=== PATIENT | female | born 1985 | race Asian ===

== ENCOUNTER → 2017-12-10 10:55 | Outpatient (CLI) | payer OTHER, SELFPAY ==
--- NOTE | 2017-12-10 | DI.MG.S_ITS ---
BILATERAL DIGITAL SCREENING MAMMOGRAM 3D/2D WITH CAD: 12/10/2017 CLINICAL: Routine screening. Family history of breast cancer. Comparison is made to exam dated: 05/03/2015 mammogram - [facility]. The tissue of both breasts is heterogeneously dense. This may lower the sensitivity of mammography. Current study was also evaluated with a Computer Aided Detection (CAD) system. No significant masses, calcifications, or other findings are seen in either breast. There has been no significant interval change. IMPRESSION: NEGATIVE There is no mammographic evidence of malignancy. A 1 year screening mammogram is recommended. This exam was interpreted at Station ID: [id number]. NOTE: For mammograms, a report in lay terms will be sent to the patient. Approximately 15% of breast malignancies will not be visualized mammographically. In the management of a palpable breast mass, a negative mammogram must not discourage biopsy of a clinically suspicious lesion. Electronically Signed By: Owen nova/katelin:12/10/2017 17:12:03 letter sent: Normal Exam ACR BI-RADS Category 1: Negative [id number]
== END ==
PROVIDERS: Family Provider Physician Assistant; PCP Physician Assistant; Visit Provider Physician Assistant
DX: Z12.31 Encounter for screening mammogram for malignant neoplasm of breast (principal); Z80.3 Family history of malignant neoplasm of breast
CPT/HCPCS: 77063; 77067

== ENCOUNTER 2018-03-01 16:45 | Outpatient (RCR) | payer OTHER, SELFPAY ==
--- NOTE | 2018-01-19 10:28 | PT.OIE ---
Current Diagnoses Stiffness of unspecified joint, not elsewhere classified (01/18/18) Cervicalgia (01/18/18) Headache (01/18/18) Weakness (01/18/18) Past Surgical History (Last Reviewed 01/11/18 @ 15:33 by Duke Ng PA-C) Status post delivery Provider Visit Care Team Role Provider Type Linda Restrepo PA-C Family Provider Advanced Call Circuit Worker Primary Care Provider Specialty: Family Practice Address: [address] [place] [address], [id number] Email: [email or web address] Duke Ng PA-C Attending Provider Advanced Call Circuit Worker Specialty: Pain Management Address: [address] [place] [address], [id number] Email: Physical Therapy Initial Evaluation PT-OP-A Visit Information Start: 01/19/18 09:36 Freq: Status: Active Protocol: Document 01/18/18 09:45 DCW (Rec: 01/19/18 10:26 DC [id number]) Out-Patient Physical Therapy Visit Information Visit Information Visit Type Initial Evaluation Visit Start Time 09:45 Visit Stop Time 10:30 Total Visit Minutes 45 Visit Number 1 Number of WASHER AND CAPPER MACHINE OPERATOR Visits 0 Evaluation Information Evaluation Date 01/18/18 PT-OP-B Current Condition Start: 01/19/18 09:36 Freq: Status: Active Protocol: Document 01/18/18 09:45 DCW (Rec: 01/19/18 10:26 DC [id number]) Current Condition History of Current Condition Onset Date 2 year history Current Complaints Cervical stiffness, headaches, participation restrictions History of Current Condition Pt is a 32 year old female presenting with a two year history of cervical neck pain and headaches. Pt is noted to have a migraine history, however reports that she stopped experiencing migraines eight years ago following her . Reports this is a much different pain, starting in her neck and working its way across her entire head. Pt does not know how it began. Notes that she previously had seen a chiropractor, which would relieve her pain for 2-3 weeks, however now her relief only lasts the remainder of the day, so she has stopped going. Pt reports she is limited in all her hobbies which require her to look down , including knitting, puzzles, piano, and video games, and last week could not drive her son to his piano lesson because it would have been safe to drive due to her neck being so stiff. Pt reports pain seems to worsen with lying supine. Notes her neck is pain free 1-2 days a month , the other days range from mild discomfort to canceling plans due to the headache or immobility. Prior Treatments and Tests Pt seen at pain management clinic by headache specialist Treatment Goals Patient/Caregiver Goals I want to get back to my hobbies, especially get restarted on playing piano. Prior Functional Status Baseline Function- ADL's Independent Baseline Function- Mobility Independent Current Functional Impairments (Reported) Functional Limitations- Recreation/ Limited with knitting, puzzles Hobbies , playing piano, and playing video games Functional Limitations- Other Occasionally limited with driving due to cervical immobility. PT-OP-C Subjective Start: 01/19/18 09:36 Freq: Status: Active Protocol: Document 01/18/18 09:45 DCW (Rec: 01/19/18 10:26 DCW [id number]) Patient Questionnaires Neck Disability Index NDI Score 15/50 = 30% Neck Disability Index Impairment 20 to 39% Impaired (Score 10- 19) OP-PT Pain Assessment Pain Assessment Grid Paper Pain Assessment Grid Completed Yes Location Bilateral Upper Posterior Shoulder Intensity 5 Scale Used Numeric (1 - 10) Bilateral Posterior Neck Intensity 7 Scale Used Numeric (1 - 10) Other Pain Aggravating Factors Laying supine, cervical flexion PT-OP-F Manual Assessment Start: 01/19/18 09:36 Freq: Status: Active Protocol: Document 01/18/18 09:45 DCW (Rec: 01/19/18 10:26 DCW [id number]) Manual Assessments Soft Tissue Assessment Soft Tissue Mobility Assessment Severe muscle tone in right scalenes and upper trap Moderate muscle tone in left scalenes and upper trap Moderate muscle tone bilateral suboccipitals Joint Mobility Assessment Joint Mobility Assessment Limited cervical ROM/joint mobility, hypomobility with cervical joint mobilizations, right lateral TMJ deviation at rest, worsening with jaw depression and elevation PT-OP-K Range of Motion Start: 01/19/18 09:36 Freq: Status: Active Protocol: Document 01/18/18 09:45 DCW (Rec: 01/19/18 10:26 [id number]) Cervical Spine Range of Motion Cervical Spine Active Degrees Testing Position Sitting Flexion 50 Extension 35 Rotation Left 57 Rotation Right 42 Lateral Flexion Left 25 Lateral Flexion Right 35 ROM Limitations Soft Tissue Tightness Bony Restriction Muscle Weakness Muscle Tone Pain Comments With cervical extension: I feel like I'm going to lose control and my head is just going to fall back. PT-OP-L Special Tests Start: 01/19/18 09:36 Freq: Status: Active Protocol: Document 01/18/18 09:45 DCW (Rec: 01/19/18 10:26 [id number]) Special Tests Cervical Spine Special Tests Passive Neck Flexion Test Results Negative Traction Test Results Relieves symptoms Alar Ligament Test Results Negative PT-OP-M Strength Start: 01/19/18 09:36 Freq: Status: Active Protocol: Document 01/18/18 09:45 DCW (Rec: 01/19/18 10:26 [id number]) Cervical Spine Strength Cervical Spine Manual Muscle Testing Testing Position Supine Flexion (C1-2) 3+ Fair+ Extension 4+ Good+ Rotation Left 4- Good- Rotation Right 4- Good- Lateral Flexion Left (C3) 4- Good- Lateral Flexion Right (C3) 4- Good- PT-OP-Q Treatments Start: 01/19/18 09:36 Freq: Status: Active Protocol: Document 01/18/18 09:45 DCW (Rec: 01/19/18 10:26 [id number]) Therapeutic Exercises Supine Exercises 1 Supine Exercise Name Chin tuck/head lift Side bilateral Sitting Exercises 2 Sitting Exercise Name Upper trap stretch Side bilateral 1 Sitting Exercise Name Scalene stretch Side bilateral PT-OP-T Assessment and Plan Start: 01/19/18 09:36 Freq: Status: Active Protocol: Document 01/18/18 09:45 DCW (Rec: 01/19/18 10:26 [facility] [id number]) Physical Therapy Assessment Rehab Potential Rehabilitation Potential Good Evaluation Complexity Number of Personal Factors/Comorbidities 1-2 Number of Body Systems Impaired 3 Clinical Presentation at Evaluation Unstable Impairments Impairments Activity Tolerance Functional Activities Functional Mobility Pain Posture ROM Soft Tissue Mobility Strength Tone Goals Five Impairment Muscle tone Short Term Goal (STG) Muscle tone of pt's bilateral scalenes, upper traps, and suboccipitals to mild STG Duration 02/08/18 Four Impairment Cervical Strength Halfway Goal (LTG) Pt to maintain a chin tuck/ head lift position for 20 seconds without increased pain or shaking LTG Duration 03/01/18 Three Impairment Cervical ROM Formation Testing Operator Goal (LTG) Cervical Flexion to 70? Cervical Extension to 50? Lateral Flexion to 40? bilaterally Rotation to 70? bilaterally LTG Duration 03/01/18 Two Impairment Pain Halfway Goal (LTG) Pt to report pain at worst of 4/10 LTG Duration 03/01/18 One Impairment Participation Restrictions Short Term Goal (STG) Pt to drive without cervical ROM limitations for two straight weeks STG Duration 02/08/18 Formation Testing Operator Goal (LTG) Pt to return to playing piano with no increased symptoms LTG Duration 03/01/18 Assessment Summary Assessment Pt presents to skilled therapy with signs and symptoms of cervicogenic headache. Pt displays cervical weakness and limited ROM, and should benefit from skilled therapy focusing on strengthening, flexibility, STM, traction, and activity tolerance. Pt's varied severity and changing affected side may be a barrier to rehab. Pt also displays some TMJ disorders, with a right laterally deviated mandible at rest, which worsens during mandibular depression and elevation, and associated grinding at the TMJ . Occasionally, cervical issues may cause TMJ disorder, however pt states that her lateral deviation is a long- standing issue, which she had extensive dental work done to correct, so this may be an unrelated finding. Physical Therapy Plan Frequency and Duration Frequency of Treatment 2x/Week Duration of Treatment 10 weeks Plan of Care Start Date 01/18/18 Plan of Care End Date 03/29/18 Therapeutic Interventions Therapeutic Interventions Aquatic Therapy Home Exercise Program Joint Mobilizations Manual Therapy Soft Tissue Mobilization Therapeutic Activities Therapeutic Exercises Modalities Cold Pack/Ice Massage Electric Stimulation Hot Packs Traction- Mechanical Ultrasound Next Visit Focus/Plan Next Note Type Treatment Note Next Visit Plan Increased flexibility and strengthening exercises, manual therapy, traction
--- NOTE | 2018-01-19 10:29 | PT.OPPOC ---
Current Diagnoses Stiffness of unspecified joint, not elsewhere classified (01/18/18) Cervicalgia (01/18/18) Headache (01/18/18) Weakness (01/18/18) Provider Visit Care Team Role Provider Type Linda Restrepo PA-C Family Provider Advanced Production Sanitizer Primary Care Provider Specialty: Family Practice Address: [address] [place] [address] Email: [email or web address] Duke Ng PA-C Attending Provider Advanced Production Sanitizer Specialty: Pain Management Address: [address] [place] [address], [id number] Email: Plan Of Care PT-OP-T Assessment and Plan Start: 01/19/18 09:36 Freq: Status: Active Protocol: Document 01/18/18 09:45 DCW (Rec: 01/19/18 10:26 DCW [id number]) Physical Therapy Assessment Rehab Potential Rehabilitation Potential Good Evaluation Complexity Number of Personal Factors/Comorbidities 1-2 Number of Body Systems Impaired 3 Clinical Presentation at Evaluation Unstable Impairments Impairments Activity Tolerance Functional Activities Functional Mobility Pain Posture ROM Soft Tissue Mobility Strength Tone Goals Five Impairment Muscle tone Short Term Goal (STG) Muscle tone of pt's bilateral scalenes, upper traps, and suboccipitals to mild STG Duration 02/08/18 Four Impairment Cervical Strength Sleep Technologist Goal (LTG) Pt to maintain a chin tuck/ head lift position for 20 seconds without increased pain or shaking LTG Duration 03/01/18 Three Impairment Cervical ROM Fpc Goal (LTG) Cervical Flexion to 70? Cervical Extension to 50? Lateral Flexion to 40? bilaterally Rotation to 70? bilaterally LTG Duration 03/01/18 Two Impairment Pain Fpc Goal (LTG) Pt to report pain at worst of 4/10 LTG Duration 03/01/18 One Impairment Participation Restrictions Short Term Goal (STG) Pt to drive without cervical ROM limitations for two straight weeks STG Duration 02/08/18 Sleep Technologist Goal (LTG) Pt to return to playing piano with no increased symptoms LTG Duration 03/01/18 Assessment Summary Assessment Pt presents to skilled therapy with signs and symptoms of cervicogenic headache. Pt displays cervical weakness and limited ROM, and should benefit from skilled therapy focusing on strengthening, flexibility, STM, traction, and activity tolerance. Pt's varied severity and changing affected side may be a barrier to rehab. Pt also displays some TMJ disorders, with a right laterally deviated mandible at rest, which worsens during mandibular depression and elevation, and associated grinding at the TMJ . Occasionally, cervical issues may cause TMJ disorder, however pt states that her lateral deviation is a long- standing issue, which she had extensive dental work done to correct, so this may be an unrelated finding. Physical Therapy Plan Frequency and Duration Frequency of Treatment 2x/Week Duration of Treatment 10 weeks Plan of Care Start Date 01/18/18 Plan of Care End Date 03/29/18 Therapeutic Interventions Therapeutic Interventions Aquatic Therapy Home Exercise Program Joint Mobilizations Manual Therapy Soft Tissue Mobilization Therapeutic Activities Therapeutic Exercises Modalities Cold Pack/Ice Massage Electric Stimulation Hot Packs Traction- Mechanical Ultrasound Next Visit Focus/Plan Next Note Type Treatment Note Next Visit Plan Increased flexibility and strengthening exercises, manual therapy, traction Plan of Care Dates Plan of Care Start Date 01/18/18 Plan of Care End Date 03/29/18 Please Sign and Return: I have reviewed this Plan of Care and certify that the skilled therapy services above are required to meet the patient?s needs. Physician Signature Date Printed Name and Credentials Clinical Instructor Signature Printed Name and Credentials
--- NOTE | 2018-01-26 10:29 | PT.OTN ---
Current Diagnoses Headache (01/26/18) Physical Therapy Treatment Note PT-OP-A Visit Information Start: 01/19/18 09:36 Freq: Status: Active Protocol: Document 01/26/18 09:45 DCW (Rec: 01/26/18 10:29 DCW [id number]) Out-Patient Physical Therapy Visit Information Visit Information Visit Type Treatment Note Visit Start Time 09:45 Visit Stop Time 10:30 Total Visit Minutes 45 Visit Number 2 Number of SOLUTION CONSULTANT Visits 0 Evaluation Information Evaluation Date 01/18/18 PT-OP-B Current Condition Start: 01/19/18 09:36 Freq: Status: Active Protocol: Document 01/18/18 09:45 DCW (Rec: 01/19/18 10:26 DCW [id number]) Current Condition History of Current Condition Onset Date 2 year history Current Complaints Cervical stiffness, headaches, participation restrictions History of Current Condition Pt is a 32 year old female presenting with a two year history of cervical neck pain and headaches. Pt is noted to have a migraine history, however reports that she stopped experiencing migraines eight years ago following her . Reports this is a much different pain, starting in her neck and working its way across her entire head. Pt does not know how it began. Notes that she previously had seen a chiropractor, which would relieve her pain for 2-3 weeks, however now her relief only lasts the remainder of the day, so she has stopped going. Pt reports she is limited in all her hobbies which require her to look down , including knitting, puzzles, piano, and video games, and last week could not drive her son to his piano lesson because it would have been safe to drive due to her neck being so stiff. Pt reports pain seems to worsen with lying supine. Notes her neck is pain free 1-2 days a month , the other days range from mild discomfort to canceling plans due to the headache or immobility. Prior Treatments and Tests Pt seen at pain management clinic by headache specialist Treatment Goals Patient/Caregiver Goals I want to get back to my hobbies, especially get restarted on playing piano. Prior Functional Status Baseline Function- ADL's Independent Baseline Function- Mobility Independent Current Functional Impairments (Reported) Functional Limitations- Recreation/ Limited with knitting, puzzles Hobbies , playing piano, and playing video games Functional Limitations- Other Occasionally limited with driving due to cervical immobility. PT-OP-C Subjective Start: 01/19/18 09:36 Freq: Status: Active Protocol: Document 01/26/18 09:45 DCW (Rec: 01/26/18 10:29 DCW [id number]) OP-PT Subjective Patient Comments Patient Comments Pt reports her right side feels better today, but her left side is now bothering her . Pt also notes that her neck feels good when performing her stretches, however will occasionally seize up afterward. PT-OP-F Manual Assessment Start: 01/19/18 09:36 Freq: Status: Active Protocol: Document 01/18/18 09:45 DCW (Rec: 01/19/18 10:26 DCW [id number]) Manual Assessments Soft Tissue Assessment Soft Tissue Mobility Assessment Severe muscle tone in right scalenes and upper trap Moderate muscle tone in left scalenes and upper trap Moderate muscle tone bilateral suboccipitals Joint Mobility Assessment Joint Mobility Assessment Limited cervical ROM/joint mobility, hypomobility with cervical joint mobilizations, right lateral TMJ deviation at rest, worsening with jaw depression and elevation PT-OP-K Range of Motion Start: 01/19/18 09:36 Freq: Status: Active Protocol: Document 01/18/18 09:45 DCW (Rec: 01/19/18 10:26 DCW [id number]) Cervical Spine Range of Motion Cervical Spine Active Degrees Testing Position Sitting Flexion 50 Extension 35 Rotation Left 57 Rotation Right 42 Lateral Flexion Left 25 Lateral Flexion Right 35 ROM Limitations Soft Tissue Tightness Bony Restriction Muscle Weakness Muscle Tone Pain Comments With cervical extension: I feel like I'm going to lose control and my head is just going to fall back. PT-OP-L Special Tests Start: 01/19/18 09:36 Freq: Status: Active Protocol: Document 01/18/18 09:45 DCW (Rec: 01/19/18 10:26 DCW [id number]) Special Tests Cervical Spine Special Tests Passive Neck Flexion Test Results Negative Traction Test Results Relieves symptoms Alar Ligament Test Results Negative PT-OP-M Strength Start: 01/19/18 09:36 Freq: Status: Active Protocol: Document 01/18/18 09:45 DCW (Rec: 01/19/18 10:26 DCW [id number]) Cervical Spine Strength Cervical Spine Manual Muscle Testing Testing Position Supine Flexion (C1-2) 3+ Fair+ Extension 4+ Good+ Rotation Left 4- Good- Rotation Right 4- Good- Lateral Flexion Left (C3) 4- Good- Lateral Flexion Right (C3) 4- Good- PT-OP-Q Treatments Start: 01/19/18 09:36 Freq: Status: Active Protocol: Document 01/26/18 09:45 DCW (Rec: 01/26/18 10:29 [id number] Manual Therapy Treatment Soft Tissue Mobilization 3 Body Location Suboccipitals Mobilization Type Sustained Pressure Intensity/Depth Superficial Body Position Supine 2 Body Location Scalenes Mobilization Type Sustained Pressure Trigger Point Release Intensity/Depth Moderate Body Position Supine 1 Body Location Upper Trap Mobilization Type Strain/Counterstrain Sustained Pressure Trigger Point Release Intensity/Depth Moderate Body Position Supine Joint Mobilizations 1 Joint Cervical vertebrae Direction P->A Grade III Body Position Supine Manual Traction Cervical Body Position Supine PT-OP-R Modalities Start: 01/19/18 09:36 Freq: Status: Active Protocol: Document 01/26/18 09:45 DCW (Rec: 01/26/18 10:29 [id number] Spinal Traction Traction Treatment Cervical Method Static Patient Position Hooklying Force Applied (Pounds) 20 Duration of Treatment (Minutes) 10 Traction Treatment Comment It feels pretty good. PT-OP-T Assessment and Plan Start: 01/19/18 09:36 Freq: Status: Active Protocol: Document 01/26/18 09:45 DCW (Rec: 01/26/18 10:29 [id number]) Physical Therapy Assessment Impairments Impairments Activity Tolerance Functional Activities Functional Mobility Pain Posture ROM Soft Tissue Mobility Strength Tone Goals Five Impairment Muscle tone Short Term Goal (STG) Muscle tone of pt's bilateral scalenes, upper traps, and suboccipitals to mild STG Duration 02/08/18 Four Impairment Cervical Strength Snf Goal (LTG) Pt to maintain a chin tuck/ head lift position for 20 seconds without increased pain or shaking LTG Duration 03/01/18 Three Impairment Cervical ROM Paddle Dyeing Machine Operator Goal (LTG) Cervical Flexion to 70? Cervical Extension to 50? Lateral Flexion to 40? bilaterally Rotation to 70? bilaterally LTG Duration 03/01/18 Two Impairment Pain Snf Goal (LTG) Pt to report pain at worst of 4/10 LTG Duration 03/01/18 One Impairment Participation Restrictions Short Term Goal (STG) Pt to drive without cervical ROM limitations for two straight weeks STG Duration 02/08/18 Snf Goal (LTG) Pt to return to playing piano with no increased symptoms LTG Duration 03/01/18 Assessment Summary Assessment Pt instructed to decrease intensity of her HEP stretching, and if spasm continued afterward, to stop performing altogether. Pt tolerated manual therapy well, and appeared to get relief from mechanical traction Physical Therapy Plan Frequency and Duration Frequency of Treatment 2x/Week Duration of Treatment 10 weeks Plan of Care Start Date 01/18/18 Plan of Care End Date 03/29/18 Therapeutic Interventions Therapeutic Interventions Aquatic Therapy Home Exercise Program Joint Mobilizations Manual Therapy Soft Tissue Mobilization Therapeutic Activities Therapeutic Exercises Modalities Cold Pack/Ice Massage Electric Stimulation Hot Packs Traction- Mechanical Ultrasound Next Visit Focus/Plan Next Note Type Treatment Note Next Visit Plan Increased flexibility and strengthening exercises, manual therapy, traction
--- NOTE | 2018-02-02 14:48 | PT.OTN ---
Current Diagnoses Headache (02/02/18) Physical Therapy Treatment Note PT-OP-A Visit Information Start: 01/19/18 09:36 Freq: Status: Active Protocol: Document 02/02/18 13:33 LRN (Rec: 02/02/18 14:47 LRN [id number]) Out-Patient Physical Therapy Visit Information Visit Information Visit Type Treatment Note Visit Start Time 13:33 Visit Stop Time 14:20 Total Visit Minutes 47 Visit Number 3 Number of SHEARER SCREEN MEASURER AND TRIMMER Visits 0 Evaluation Information Evaluation Date 01/18/18 PT-OP-B Current Condition Start: 01/19/18 09:36 Freq: Status: Active Protocol: Document 01/18/18 09:45 DCW (Rec: 01/19/18 10:26 DCW [id number]) Current Condition History of Current Condition Onset Date 2 year history Current Complaints Cervical stiffness, headaches, participation restrictions History of Current Condition Pt is a 32 year old female presenting with a two year history of cervical neck pain and headaches. Pt is noted to have a migraine history, however reports that she stopped experiencing migraines eight years ago following her . Reports this is a much different pain, starting in her neck and working its way across her entire head. Pt does not know how it began. Notes that she previously had seen a chiropractor, which would relieve her pain for 2-3 weeks, however now her relief only lasts the remainder of the day, so she has stopped going. Pt reports she is limited in all her hobbies which require her to look down , including knitting, puzzles, piano, and video games, and last week could not drive her son to his piano lesson because it would have been safe to drive due to her neck being so stiff. Pt reports pain seems to worsen with lying supine. Notes her neck is pain free 1-2 days a month , the other days range from mild discomfort to canceling plans due to the headache or immobility. Prior Treatments and Tests Pt seen at pain management clinic by headache specialist Treatment Goals Patient/Caregiver Goals I want to get back to my hobbies, especially get restarted on playing piano. Prior Functional Status Baseline Function- ADL's Independent Baseline Function- Mobility Independent Current Functional Impairments (Reported) Functional Limitations- Recreation/ Limited with knitting, puzzles Hobbies , playing piano, and playing video games Functional Limitations- Other Occasionally limited with driving due to cervical immobility. PT-OP-C Subjective Start: 01/19/18 09:36 Freq: Status: Active Protocol: Document 02/02/18 13:33 LRN (Rec: 02/02/18 14:47 LRN [id number]) OP-PT Subjective Patient Comments Patient Comments Stretches and new pillow, woke today feeling better than has been. Static, 0/10 pain, if move wrong (turning head) pain shoots up neck rated 3/10. One muscle is a dull ache, muscle that runs up the neck. States during traction the last session she had discomfort, but when finished it cleared up. States since stretching, occasionally she feels she is restricted by a thread and discomfort, but if keeps going she hears a pop and then has more movement. PT-OP-F Manual Assessment Start: 01/19/18 09:36 Freq: Status: Active Protocol: Document 01/18/18 09:45 DCW (Rec: 01/19/18 10:26 DCW [id number]) Manual Assessments Soft Tissue Assessment Soft Tissue Mobility Assessment Severe muscle tone in right scalenes and upper trap Moderate muscle tone in left scalenes and upper trap Moderate muscle tone bilateral suboccipitals Joint Mobility Assessment Joint Mobility Assessment Limited cervical ROM/joint mobility, hypomobility with cervical joint mobilizations, right lateral TMJ deviation at rest, worsening with jaw depression and elevation PT-OP-K Range of Motion Start: 01/19/18 09:36 Freq: Status: Active Protocol: Document 01/18/18 09:45 DCW (Rec: 01/19/18 10:26 DCW [id number]) Cervical Spine Range of Motion Cervical Spine Active Degrees Testing Position Sitting Flexion 50 Extension 35 Rotation Left 57 Rotation Right 42 Lateral Flexion Left 25 Lateral Flexion Right 35 ROM Limitations Soft Tissue Tightness Bony Restriction Muscle Weakness Muscle Tone Pain Comments With cervical extension: I feel like I'm going to lose control and my head is just going to fall back. PT-OP-L Special Tests Start: 01/19/18 09:36 Freq: Status: Active Protocol: Document 01/18/18 09:45 DCW (Rec: 01/19/18 10:26 DCW [id number]) Special Tests Cervical Spine Special Tests Passive Neck Flexion Test Results Negative Traction Test Results Relieves symptoms Alar Ligament Test Results Negative PT-OP-M Strength Start: 01/19/18 09:36 Freq: Status: Active Protocol: Document 01/18/18 09:45 DCW (Rec: 01/19/18 10:26 DCW [id number]) Cervical Spine Strength Cervical Spine Manual Muscle Testing Testing Position Supine Flexion (C1-2) 3+ Fair+ Extension 4+ Good+ Rotation Left 4- Good- Rotation Right 4- Good- Lateral Flexion Left (C3) 4- Good- Lateral Flexion Right (C3) 4- Good- PT-OP-Q Treatments Start: 01/19/18 09:36 Freq: Status: Active Protocol: Document 02/02/18 13:33 LRN (Rec: 02/02/18 14:47 LRN [id number]) Therapeutic Exercises Supine Exercises 1 Supine Exercise Name Chin tuck/head lift Side bilateral Sitting Exercises 1 Sitting Exercise Name Scalene stretch Side bilateral Manual Therapy Treatment Soft Tissue Mobilization 4 Body Location L Platysma/Digastric at Mandible Mobilization Type Sustained Pressure Intensity/Depth Superficial Body Position Supine 3 Body Location Suboccipitals Mobilization Type Sustained Pressure Intensity/Depth Superficial Body Position Supine 2 Body Location Scalenes Mobilization Type Sustained Pressure Trigger Point Release Intensity/Depth Moderate Body Position Supine 1 Body Location Upper Trap Mobilization Type Strain/Counterstrain Sustained Pressure Trigger Point Release Intensity/Depth Moderate Body Position Supine Joint Mobilizations 1 Joint Cervical vertebrae Direction P->A Grade II Body Position Supine Self-Care/Home Management Treatment Education Other Education Self care I/S: Pt to not push into discomfort with C. AROM ex's to avoid popping in the C/S. PT-OP-R Modalities Start: 01/19/18 09:36 Freq: Status: Active Protocol: Document 02/02/18 13:33 LRN (Rec: 02/02/18 14:47 LRN [id number]) Spinal Traction Traction Treatment Cervical Method Static Patient Position Hooklying Force Applied (Pounds) 10 Duration of Treatment (Minutes) 10 Traction Treatment Comment It feels pretty good. Height: 2nd level PT-OP-T Assessment and Plan Start: 01/19/18 09:36 Freq: Status: Active Protocol: Document 02/02/18 13:33 LRN (Rec: 02/02/18 14:47 LRN [id number]) Physical Therapy Assessment Impairments Impairments Activity Tolerance Functional Activities Functional Mobility Pain Posture ROM Soft Tissue Mobility Strength Tone Goals Five Impairment Muscle tone Short Term Goal (STG) Muscle tone of pt's bilateral scalenes, upper traps, and suboccipitals to mild STG Duration 02/08/18 Four Impairment Cervical Strength Fpc Goal (LTG) Pt to maintain a chin tuck/ head lift position for 20 seconds without increased pain or shaking LTG Duration 03/01/18 Three Impairment Cervical ROM Fpc Goal (LTG) Cervical Flexion to 70? Cervical Extension to 50? Lateral Flexion to 40? bilaterally Rotation to 70? bilaterally LTG Duration 03/01/18 Two Impairment Pain Radiotelegraph Operator Servicer Goal (LTG) Pt to report pain at worst of 4/10 LTG Duration 03/01/18 One Impairment Participation Restrictions Short Term Goal (STG) Pt to drive without cervical ROM limitations for two straight weeks STG Duration 02/08/18 Fpc Goal (LTG) Pt to return to playing piano with no increased symptoms LTG Duration 03/01/18 Assessment Summary Assessment Pt was tight on R side of posterior neck/L side of anterior neck, and painful on L side today. Her neck/ shoulder muscles relax moderately easy with STM. Pt felt c. traction effects with less weight and less of angle. Pt had a + response to C. traction. Physical Therapy Plan Frequency and Duration Frequency of Treatment 2x/Week Duration of Treatment 10 weeks Plan of Care Start Date 01/18/18 Plan of Care End Date 03/29/18 Therapeutic Interventions Therapeutic Interventions Aquatic Therapy Home Exercise Program Joint Mobilizations Manual Therapy Soft Tissue Mobilization Therapeutic Activities Therapeutic Exercises Modalities Cold Pack/Ice Massage Electric Stimulation Hot Packs Traction- Mechanical Ultrasound Next Visit Focus/Plan Next Note Type Treatment Note Next Visit Plan Assess response to C traction with less weight and decreased angle. Increase flexibility and strengthening exercises, manual therapy, traction.
--- NOTE | 2018-02-09 12:37 | PT.OTN ---
Current Diagnoses Headache (02/09/18) Physical Therapy Treatment Note PT-OP-A Visit Information Start: 01/19/18 09:36 Freq: Status: Active Protocol: Document 02/09/18 11:15 DCW (Rec: 02/09/18 12:37 DCW [id number]) Out-Patient Physical Therapy Visit Information Visit Information Visit Type Treatment Note Visit Start Time 11:15 Visit Stop Time 12:00 Total Visit Minutes 45 Visit Number 4 Number of DIVISION COMMANDER Visits 0 Evaluation Information Evaluation Date 01/18/18 PT-OP-B Current Condition Start: 01/19/18 09:36 Freq: Status: Active Protocol: Document 01/18/18 09:45 DCW (Rec: 01/19/18 10:26 DCW [id number]) Current Condition History of Current Condition Onset Date 2 year history Current Complaints Cervical stiffness, headaches, participation restrictions History of Current Condition Pt is a 32 year old female presenting with a two year history of cervical neck pain and headaches. Pt is noted to have a migraine history, however reports that she stopped experiencing migraines eight years ago following her . Reports this is a much different pain, starting in her neck and working its way across her entire head. Pt does not know how it began. Notes that she previously had seen a chiropractor, which would relieve her pain for 2-3 weeks, however now her relief only lasts the remainder of the day, so she has stopped going. Pt reports she is limited in all her hobbies which require her to look down , including knitting, puzzles, piano, and video games, and last week could not drive her son to his piano lesson because it would have been safe to drive due to her neck being so stiff. Pt reports pain seems to worsen with lying supine. Notes her neck is pain free 1-2 days a month , the other days range from mild discomfort to canceling plans due to the headache or immobility. Prior Treatments and Tests Pt seen at pain management clinic by headache specialist Treatment Goals Patient/Caregiver Goals I want to get back to my hobbies, especially get restarted on playing piano. Prior Functional Status Baseline Function- ADL's Independent Baseline Function- Mobility Independent Current Functional Impairments (Reported) Functional Limitations- Recreation/ Limited with knitting, puzzles Hobbies , playing piano, and playing video games Functional Limitations- Other Occasionally limited with driving due to cervical immobility. PT-OP-C Subjective Start: 01/19/18 09:36 Freq: Status: Active Protocol: Document 02/09/18 11:15 DCW (Rec: 02/09/18 12:37 DCW [id number]) OP-PT Subjective Patient Comments Patient Comments Pt notes she had a headache yesterday, but is unsure if it was from her neck, or due to all the smoke in the air. Pt does admit that her neck is feeling a lot better than when I first came in. PT-OP-F Manual Assessment Start: 01/19/18 09:36 Freq: Status: Active Protocol: Document 01/18/18 09:45 DCW (Rec: 01/19/18 10:26 DCW [id number]) Manual Assessments Soft Tissue Assessment Soft Tissue Mobility Assessment Severe muscle tone in right scalenes and upper trap Moderate muscle tone in left scalenes and upper trap Moderate muscle tone bilateral suboccipitals Joint Mobility Assessment Joint Mobility Assessment Limited cervical ROM/joint mobility, hypomobility with cervical joint mobilizations, right lateral TMJ deviation at rest, worsening with jaw depression and elevation PT-OP-K Range of Motion Start: 01/19/18 09:36 Freq: Status: Active Protocol: Document 01/18/18 09:45 DCW (Rec: 01/19/18 10:26 DCW [id number]) Cervical Spine Range of Motion Cervical Spine Active Degrees Testing Position Sitting Flexion 50 Extension 35 Rotation Left 57 Rotation Right 42 Lateral Flexion Left 25 Lateral Flexion Right 35 ROM Limitations Soft Tissue Tightness Bony Restriction Muscle Weakness Muscle Tone Pain Comments With cervical extension: I feel like I'm going to lose control and my head is just going to fall back. PT-OP-L Special Tests Start: 01/19/18 09:36 Freq: Status: Active Protocol: Document 01/18/18 09:45 DCW (Rec: 01/19/18 10:26 DCW [id number]) Special Tests Cervical Spine Special Tests Passive Neck Flexion Test Results Negative Traction Test Results Relieves symptoms Alar Ligament Test Results Negative PT-OP-M Strength Start: 01/19/18 09:36 Freq: Status: Active Protocol: Document 01/18/18 09:45 DCW (Rec: 01/19/18 10:26 DCW [id number]) Cervical Spine Strength Cervical Spine Manual Muscle Testing Testing Position Supine Flexion (C1-2) 3+ Fair+ Extension 4+ Good+ Rotation Left 4- Good- Rotation Right 4- Good- Lateral Flexion Left (C3) 4- Good- Lateral Flexion Right (C3) 4- Good- PT-OP-Q Treatments Start: 01/19/18 09:36 Freq: Status: Active Protocol: Document 02/09/18 11:15 DCW (Rec: 02/09/18 12:37 DCW [id number]) Therapeutic Exercises Sitting Exercises 2 Sitting Exercise Name Upper trap stretch Side bilateral 1 Sitting Exercise Name Scalene stretch Side bilateral Manual Therapy Treatment Soft Tissue Mobilization 3 Body Location Suboccipitals Mobilization Type Sustained Pressure Intensity/Depth Superficial Body Position Supine 2 Body Location Scalenes Mobilization Type Sustained Pressure Trigger Point Release Intensity/Depth Moderate Body Position Supine 1 Body Location Upper Trap Mobilization Type Strain/Counterstrain Sustained Pressure Trigger Point Release Intensity/Depth Moderate Body Position Supine Joint Mobilizations 1 Joint Cervical vertebrae Direction P->A Grade III Body Position Supine Manual Traction Cervical Body Position Supine PT-OP-R Modalities Start: 01/19/18 09:36 Freq: Status: Active Protocol: Document 02/09/18 11:15 DCW (Rec: 02/09/18 12:37 DCW [id number]) Electric Stimulation Electric Stimulation Interferential Current (IFC) Body Location Right upper trap Duration (Minutes) 15 Intensity 15 Patient Position Hooklying Combined With Heat/Cold Hot Pack PT-OP-T Assessment and Plan Start: 01/19/18 09:36 Freq: Status: Active Protocol: Document 02/09/18 11:15 DCW (Rec: 02/09/18 12:37 DCW [id number]) Physical Therapy Assessment Impairments Impairments Activity Tolerance Functional Activities Functional Mobility Pain Posture ROM Soft Tissue Mobility Strength Tone Goals Five Impairment Muscle tone Short Term Goal (STG) Muscle tone of pt's bilateral scalenes, upper traps, and suboccipitals to mild STG Duration 02/08/18 Four Impairment Cervical Strength Chiropractor Sole Practitioner Goal (LTG) Pt to maintain a chin tuck/ head lift position for 20 seconds without increased pain or shaking LTG Duration 03/01/18 Three Impairment Cervical ROM Fdc Goal (LTG) Cervical Flexion to 70? Cervical Extension to 50? Lateral Flexion to 40? bilaterally Rotation to 70? bilaterally LTG Duration 03/01/18 Two Impairment Pain Fdc Goal (LTG) Pt to report pain at worst of 4/10 LTG Duration 03/01/18 One Impairment Participation Restrictions Short Term Goal (STG) Pt to drive without cervical ROM limitations for two straight weeks STG Duration 02/08/18 Fdc Goal (LTG) Pt to return to playing piano with no increased symptoms LTG Duration 03/01/18 Assessment Summary Assessment Pt continues to improve since beginning physical therapy, noting less frequent and less intense headaches. Physical Therapy Plan Frequency and Duration Frequency of Treatment 2x/Week Duration of Treatment 10 weeks Plan of Care Start Date 01/18/18 Plan of Care End Date 03/29/18 Therapeutic Interventions Therapeutic Interventions Aquatic Therapy Home Exercise Program Joint Mobilizations Manual Therapy Soft Tissue Mobilization Therapeutic Activities Therapeutic Exercises Modalities Cold Pack/Ice Massage Electric Stimulation Hot Packs Traction- Mechanical Ultrasound Next Visit Focus/Plan Next Note Type Treatment Note Next Visit Plan Increased flexibility and strengthening exercises, manual therapy, traction
--- NOTE | 2018-03-01 17:21 | PT.OTN ---
Current Diagnoses Headache (02/09/18) Physical Therapy Treatment Note PT-OP-A Visit Information Start: 01/19/18 09:36 Freq: Status: Active Protocol: Document 03/01/18 16:45 DCW (Rec: 03/01/18 17:21 DCW [id number]) Out-Patient Physical Therapy Visit Information Visit Information Visit Type Treatment Note Visit Start Time 16:45 Visit Stop Time 17:15 Total Visit Minutes 30 Visit Number 5 Number of KINESIOTHERAPIST Visits 0 Evaluation Information Evaluation Date 01/18/18 PT-OP-B Current Condition Start: 01/19/18 09:36 Freq: Status: Active Protocol: Document 01/18/18 09:45 DCW (Rec: 01/19/18 10:26 DCW [id number]) Current Condition History of Current Condition Onset Date 2 year history Current Complaints Cervical stiffness, headaches, participation restrictions History of Current Condition Pt is a 32 year old female presenting with a two year history of cervical neck pain and headaches. Pt is noted to have a migraine history, however reports that she stopped experiencing migraines eight years ago following her . Reports this is a much different pain, starting in her neck and working its way across her entire head. Pt does not know how it began. Notes that she previously had seen a chiropractor, which would relieve her pain for 2-3 weeks, however now her relief only lasts the remainder of the day, so she has stopped going. Pt reports she is limited in all her hobbies which require her to look down , including knitting, puzzles, piano, and video games, and last week could not drive her son to his piano lesson because it would have been safe to drive due to her neck being so stiff. Pt reports pain seems to worsen with lying supine. Notes her neck is pain free 1-2 days a month , the other days range from mild discomfort to canceling plans due to the headache or immobility. Prior Treatments and Tests Pt seen at pain management clinic by headache specialist Treatment Goals Patient/Caregiver Goals I want to get back to my hobbies, especially get restarted on playing piano. Prior Functional Status Baseline Function- ADL's Independent Baseline Function- Mobility Independent Current Functional Impairments (Reported) Functional Limitations- Recreation/ Limited with knitting, puzzles Hobbies , playing piano, and playing video games Functional Limitations- Other Occasionally limited with driving due to cervical immobility. PT-OP-C Subjective Start: 01/19/18 09:36 Freq: Status: Active Protocol: Document 03/01/18 16:45 DCW (Rec: 03/01/18 17:21 DCW [id number]) OP-PT Subjective Patient Comments Patient Comments I don't know if it's my new bed or pillow, or something else, but I've been doing much better recently. PT-OP-F Manual Assessment Start: 01/19/18 09:36 Freq: Status: Active Protocol: Document 01/18/18 09:45 DCW (Rec: 01/19/18 10:26 DCW [id number]) Manual Assessments Soft Tissue Assessment Soft Tissue Mobility Assessment Severe muscle tone in right scalenes and upper trap Moderate muscle tone in left scalenes and upper trap Moderate muscle tone bilateral suboccipitals Joint Mobility Assessment Joint Mobility Assessment Limited cervical ROM/joint mobility, hypomobility with cervical joint mobilizations, right lateral TMJ deviation at rest, worsening with jaw depression and elevation PT-OP-K Range of Motion Start: 01/19/18 09:36 Freq: Status: Active Protocol: Document 01/18/18 09:45 DCW (Rec: 01/19/18 10:26 DCW [id number]) Cervical Spine Range of Motion Cervical Spine Active Degrees Testing Position Sitting Flexion 50 Extension 35 Rotation Left 57 Rotation Right 42 Lateral Flexion Left 25 Lateral Flexion Right 35 ROM Limitations Soft Tissue Tightness Bony Restriction Muscle Weakness Muscle Tone Pain Comments With cervical extension: I feel like I'm going to lose control and my head is just going to fall back. PT-OP-L Special Tests Start: 01/19/18 09:36 Freq: Status: Active Protocol: Document 01/18/18 09:45 DCW (Rec: 01/19/18 10:26 DCW [id number]) Special Tests Cervical Spine Special Tests Passive Neck Flexion Test Results Negative Traction Test Results Relieves symptoms Alar Ligament Test Results Negative PT-OP-M Strength Start: 01/19/18 09:36 Freq: Status: Active Protocol: Document 01/18/18 09:45 DCW (Rec: 01/19/18 10:26 DCW [id number]) Cervical Spine Strength Cervical Spine Manual Muscle Testing Testing Position Supine Flexion (C1-2) 3+ Fair+ Extension 4+ Good+ Rotation Left 4- Good- Rotation Right 4- Good- Lateral Flexion Left (C3) 4- Good- Lateral Flexion Right (C3) 4- Good- PT-OP-Q Treatments Start: 01/19/18 09:36 Freq: Status: Active Protocol: Document 03/01/18 16:45 DCW (Rec: 03/01/18 17:21 DCW [id number]) Manual Therapy Treatment Soft Tissue Mobilization 3 Body Location Suboccipitals Mobilization Type Sustained Pressure Intensity/Depth Superficial Body Position Supine 2 Body Location Scalenes Mobilization Type Sustained Pressure Trigger Point Release Intensity/Depth Moderate Body Position Supine 1 Body Location Upper Trap Mobilization Type Strain/Counterstrain Sustained Pressure Trigger Point Release Intensity/Depth Moderate Body Position Supine Joint Mobilizations 1 Joint Cervical vertebrae Direction P->A Grade III Body Position Supine Manual Traction Cervical Body Position Supine PT-OP-R Modalities Start: 01/19/18 09:36 Freq: Status: Active Protocol: Document 02/09/18 11:15 DCW (Rec: 02/09/18 12:37 DCW [id number]) Electric Stimulation Electric Stimulation Interferential Current (IFC) Body Location Right upper trap Duration (Minutes) 15 Intensity 15 Patient Position Hooklying Combined With Heat/Cold Hot Pack PT-OP-T Assessment and Plan Start: 01/19/18 09:36 Freq: Status: Active Protocol: Document 03/01/18 16:45 DCW (Rec: 03/01/18 17:21 DCW [id number]) Physical Therapy Assessment Impairments Impairments Activity Tolerance Functional Activities Functional Mobility Pain Posture ROM Soft Tissue Mobility Strength Tone Goals Five Impairment Muscle tone Short Term Goal (STG) Muscle tone of pt's bilateral scalenes, upper traps, and suboccipitals to mild STG Duration 02/08/18 Four Impairment Cervical Strength Automation Driver Goal (LTG) Pt to maintain a chin tuck/ head lift position for 20 seconds without increased pain or shaking LTG Duration 03/01/18 Three Impairment Cervical ROM Half-Way Goal (LTG) Cervical Flexion to 70? Cervical Extension to 50? Lateral Flexion to 40? bilaterally Rotation to 70? bilaterally LTG Duration 03/01/18 Two Impairment Pain Half-Way Goal (LTG) Pt to report pain at worst of 4/10 LTG Duration 03/01/18 One Impairment Participation Restrictions Short Term Goal (STG) Pt to drive without cervical ROM limitations for two straight weeks STG Duration 02/08/18 Automation Driver Goal (LTG) Pt to return to playing piano with no increased symptoms LTG Duration 03/01/18 Assessment Summary Assessment Pt is doing very well at this point, feels comfortable with not scheduling any follow-up visits at this time. Pt was agreeable with waiting for ~1 month for discharge to ensure she does not suffer a setback. Physical Therapy Plan Frequency and Duration Frequency of Treatment 2x/Week Duration of Treatment 10 weeks Plan of Care Start Date 01/18/18 Plan of Care End Date 03/29/18 Therapeutic Interventions Therapeutic Interventions Aquatic Therapy Home Exercise Program Joint Mobilizations Manual Therapy Soft Tissue Mobilization Therapeutic Activities Therapeutic Exercises Modalities Cold Pack/Ice Massage Electric Stimulation Hot Packs Traction- Mechanical Ultrasound Next Visit Focus/Plan Next Note Type Discharge Summary Next Visit Plan Likely discharge
--- NOTE | 2018-03-31 15:42 | PT.OPDS ---
Current Diagnoses Headache (03/01/18) Provider Visit Care Team Role Provider Type Linda Restrepo PA-C Family Provider [employer] Primary Care Provider Specialty: Family Practice Address: [address] [place] [address], [id number] Email: [email or web address] PA-C Attending Provider [employer] Specialty: Pain Management Address: [address] [place] [address], [phone] Email: Visit Number Visit Number 5 Discharge Summary PT-OP-B Current Condition Start: 01/19/18 09:36 Freq: Status: Active Protocol: Document 01/18/18 09:45 DCW (Rec: 01/19/18 10:26 DCW [id number]) Current Condition History of Current Condition Onset Date 2 year history Current Complaints Cervical stiffness, headaches, participation restrictions History of Current Condition Pt is a 32 year old female presenting with a two year history of cervical neck pain and headaches. Pt is noted to have a migraine history, however reports that she stopped experiencing migraines eight years ago following her . Reports this is a much different pain, starting in her neck and working its way across her entire head. Pt does not know how it began. Notes that she previously had seen a chiropractor, which would relieve her pain for 2-3 weeks, however now her relief only lasts the remainder of the day, so she has stopped going. Pt reports she is limited in all her hobbies which require her to look down , including knitting, puzzles, piano, and video games, and last week could not drive her son to his piano lesson because it would have been safe to drive due to her neck being so stiff. Pt reports pain seems to worsen with lying supine. Notes her neck is pain free 1-2 days a month , the other days range from mild discomfort to canceling plans due to the headache or immobility. Prior Treatments and Tests Pt seen at pain management clinic by headache specialist Treatment Goals Patient/Caregiver Goals I want to get back to my hobbies, especially get restarted on playing piano. Prior Functional Status Baseline Function- ADL's Independent Baseline Function- Mobility Independent Current Functional Impairments (Reported) Functional Limitations- Recreation/ Limited with knitting, puzzles Hobbies , playing piano, and playing video games Functional Limitations- Other Occasionally limited with driving due to cervical immobility. PT-OP-C Subjective Start: 01/19/18 09:36 Freq: Status: Active Protocol: Document 03/01/18 16:45 DCW (Rec: 03/01/18 17:21 DCW [id number]) OP-PT Subjective Patient Comments Patient Comments I don't know if it's my new bed or pillow, or something else, but I've been doing much better recently. PT-OP-F Manual Assessment Start: 01/19/18 09:36 Freq: Status: Active Protocol: Document 01/18/18 09:45 DCW (Rec: 01/19/18 10:26 DCW [id number]) Manual Assessments Soft Tissue Assessment Soft Tissue Mobility Assessment Severe muscle tone in right scalenes and upper trap Moderate muscle tone in left scalenes and upper trap Moderate muscle tone bilateral suboccipitals Joint Mobility Assessment Joint Mobility Assessment Limited cervical ROM/joint mobility, hypomobility with cervical joint mobilizations, right lateral TMJ deviation at rest, worsening with jaw depression and elevation PT-OP-K Range of Motion Start: 01/19/18 09:36 Freq: Status: Active Protocol: Document 01/18/18 09:45 DCW (Rec: 01/19/18 10:26 DCW [id number]) Cervical Spine Range of Motion Cervical Spine Active Degrees Testing Position Sitting Flexion 50 Extension 35 Rotation Left 57 Rotation Right 42 Lateral Flexion Left 25 Lateral Flexion Right 35 ROM Limitations Soft Tissue Tightness Bony Restriction Muscle Weakness Muscle Tone Pain Comments With cervical extension: I feel like I'm going to lose control and my head is just going to fall back. PT-OP-L Special Tests Start: 01/19/18 09:36 Freq: Status: Active Protocol: Document 01/18/18 09:45 DCW (Rec: 01/19/18 10:26 DCW [id number]) Special Tests Cervical Spine Special Tests Passive Neck Flexion Test Results Negative Traction Test Results Relieves symptoms Alar Ligament Test Results Negative PT-OP-M Strength Start: 01/19/18 09:36 Freq: Status: Active Protocol: Document 01/18/18 09:45 DCW (Rec: 01/19/18 10:26 DCW [id number]) Cervical Spine Strength Cervical Spine Manual Muscle Testing Testing Position Supine Flexion (C1-2) 3+ Fair+ Extension 4+ Good+ Rotation Left 4- Good- Rotation Right 4- Good- Lateral Flexion Left (C3) 4- Good- Lateral Flexion Right (C3) 4- Good- PT-OP-T Assessment and Plan Start: 01/19/18 09:36 Freq: Status: Active Protocol: Document 03/31/18 15:40 DCW (Rec: 03/31/18 15:41 DCW [id number]) Physical Therapy Assessment Goals Five Impairment Muscle tone Short Term Goal (STG) Muscle tone of pt's bilateral scalenes, upper traps, and suboccipitals to mild STG Duration 02/08/18 Four Impairment Cervical Strength Detention Goal (LTG) Pt to maintain a chin tuck/ head lift position for 20 seconds without increased pain or shaking LTG Duration 03/01/18 Three Impairment Cervical ROM Air Control/Anti Air Warfare Officer Goal (LTG) Cervical Flexion to 70? Cervical Extension to 50? Lateral Flexion to 40? bilaterally Rotation to 70? bilaterally LTG Duration 03/01/18 Two Impairment Pain Air Control/Anti Air Warfare Officer Goal (LTG) Pt to report pain at worst of 4/10 LTG Duration 03/01/18 One Impairment Participation Restrictions Short Term Goal (STG) Pt to drive without cervical ROM limitations for two straight weeks STG Duration 02/08/18 Detention Goal (LTG) Pt to return to playing piano with no increased symptoms LTG Duration 03/01/18 Physical Therapy Plan Discharge Physical Therapy Discharge Reasons Goals Met Discharge Comments Pt doing very well at her last visit, felt she was good enough for discharge, however requested to wait one month to ensure no set-back. Pt has now not been seen in one month , and will be discharged from skilled therapy at this time.
== END 2018-06-07 16:39 ==
LOC: PHYS 16:45
PROVIDERS: Family Provider Physician Assistant; PCP Physician Assistant; Visit Provider Specialist
DX: R51 Headache (principal)
CPT/HCPCS: 97012; 97014; 97110; 97140; 97162; G0283

== ENCOUNTER → 2018-12-10 11:13 | Outpatient (CLI) | payer OTHER, SELFPAY ==
[2018-12-10 11:54] LABS: Hemoglobin A1C% w Est Avg Glu 5.5 % (4.0-6.0)
[2018-12-10 12:30] LABS: Alanine Aminotransferase 13 IU/L (9-52); Albumin 4.8 g/dL (3.5-5.0); Albumin Globulin Ratio 1.5 (1.0-2.8); Alkaline Phosphatase 53 U/L (38-126); Aspartate Aminotransferase 17 IU/L (14-36); Bilirubin Total 0.5 mg/dL (0.2-1.3); Blood Urea Nitrogen 13 mg/dL (7-17); Calcium 9.9 mg/dL (8.4-10.2); Carbon Dioxide 28 mmol/L (22-32); Chloride 105 mmol/L (98-107); Estimated Glomerular Filt Rate > 60.0 mL/min (>60); Globulin 3.1 g/dL (1.7-4.1); Glucose 98 mg/dL (70-100); HEMOLYSIS < 15 (0-50); Potassium 4.9 mmol/L (3.4-5.1); Sodium 142 mmol/L (137-145); Total Protein 7.9 g/dL (6.3-8.2)
[2018-12-10 12:52] LABS: Thyroid Stimulating Hormone 1.89 uIU/mL (0.47-4.68)
== END ==
PROVIDERS: PCP Physician Assistant; Visit Provider Physician Assistant
DX: E03.9 Hypothyroidism, unspecified (principal); R73.01 Impaired fasting glucose; E28.2 Polycystic ovarian syndrome
CPT/HCPCS: 36415; 80053; 83036; 84443

== ENCOUNTER → 2019-01-27 11:23 | Outpatient (CLI) | payer OTHER, SELFPAY ==
--- NOTE | 2019-01-27 | DI.MG.S_ITS ---
BILATERAL DIGITAL SCREENING MAMMOGRAM 3D/2D WITH CAD: 01/27/2019 CLINICAL: Routine screening. Family history of breast cancer. Comparison is made to exams dated: 12/10/2017 mammogram - [facility] and 05/03/2015 mammogram - [facility]. There are scattered fibroglandular elements in both breasts. Current study was also evaluated with a Computer Aided Detection (CAD) system. No significant masses, calcifications, or other findings are seen in either breast. There has been no significant interval change. IMPRESSION: NEGATIVE There is no mammographic evidence of malignancy. A 1 year screening mammogram is recommended. This exam was interpreted at Station ID: [id number]. NOTE: For mammograms, a report in lay terms will be sent to the patient. Approximately 15% of breast malignancies will not be visualized mammographically. In the management of a palpable breast mass, a negative mammogram must not discourage biopsy of a clinically suspicious lesion. Electronically Signed By: Dale [email or web address]:01/27/2019 12:02:38 letter sent: Normal Exam ACR BI-RADS Category 1: Negative 3341F
== END ==
PROVIDERS: PCP Physician Assistant; Visit Provider Physician Assistant
DX: Z12.31 Encounter for screening mammogram for malignant neoplasm of breast (principal); Z80.3 Family history of malignant neoplasm of breast
CPT/HCPCS: 77063; 77067

== ENCOUNTER → 2020-02-11 15:53 | Outpatient (CLI) | payer OTHER, SELFPAY ==
--- NOTE | 2020-02-11 | DI.MG.S_ITS ---
BILATERAL DIGITAL SCREENING MAMMOGRAM 3D/2D WITH CAD: 02/11/2020 CLINICAL: Routine screening. Family history of breast cancer. Comparison is made to exams dated: 01/27/2019 mammogram, 12/10/2017 mammogram - [facility], and 05/03/2015 mammogram - [facility]. There are scattered fibroglandular elements in both breasts. Current study was also evaluated with a Computer Aided Detection (CAD) system. No significant masses, calcifications, or other findings are seen in either breast. There has been no significant interval change. IMPRESSION: NEGATIVE There is no mammographic evidence of malignancy. A 1 year screening mammogram is recommended. This exam was interpreted at Station ID: [id number]. NOTE: For mammograms, a report in lay terms will be sent to the patient. Approximately 15% of breast malignancies will not be visualized mammographically. In the management of a palpable breast mass, a negative mammogram must not discourage biopsy of a clinically suspicious lesion. Electronically Signed By: Lalo [email or web address]/[email or web address]:02/13/2020 09:12:52 letter sent: Normal Exam ACR BI-RADS Category 1: Negative 3341F
== END ==
PROVIDERS: PCP Registered Nurse Diabetes Educator; Referring Provider Physician Assistant; Visit Provider Physician Assistant
DX: Z12.31 Encounter for screening mammogram for malignant neoplasm of breast (principal); Z80.3 Family history of malignant neoplasm of breast
CPT/HCPCS: 77063; 77067